=== PATIENT | female | born 2000 | race Two or more races ===

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

== ENCOUNTER 2019-02-05 08:19 | Emergency (ER) | payer OTHER ==
[~2019-02-05] VITALS: Ht 157.5 cm; Wt 85.0 kg
[~2019-02-05 08:19] MED LIST changes: +NAPR-885 PO; -NAPR500T3 PO
[2019-02-05] MEDS ORDERED: ACET1TAB55 PO (08:31)
[2019-02-05] MEDS ORDERED: ONDANSETRON 4 MG ORAL DISINTEGRATING TAB (Q0162 PER 1MG) PO ONE (09:30)
[2019-02-05] MEDS ORDERED: traMADol 50 MG TAB PO ONE (09:30)
[2019-02-05] MEDS ORDERED: TRAM50TA2 PO (09:50)
[2019-02-05] MEDS ORDERED: ONDA4TAB6 PO (09:50)
[2019-02-05 09:55] VITALS: BP 141/69
== END 2019-02-05 09:59 | disposition home or self-care (01) ==
LOC: M ED 08:19
DX: S06.0X0A Concussion without loss of consciousness, initial encounter (principal); W50.1XXA Accidental kick by another person, initial encounter; Y92.129 Unspecified place in nursing home as the place of occurrence of the external cause; Y99.0 Civilian activity done for income or pay; F41.9 Anxiety disorder, unspecified
CPT/HCPCS: 99283; Q0162

== ENCOUNTER 2020-09-20 16:00 | Emergency (ER) | payer OTHER ==
[~2020-09-20] VITALS: Ht 157.5 cm; Wt 81.8 kg
[~2020-09-20 16:00] MED LIST changes: +ACET1TAB55 PO; +ONDA4TAB6 PO; +TRAM50TA2 PO
[2020-09-20 16:01] VITALS: BP 128/74
[2020-09-20] MEDS ORDERED: TRAZ-189 (16:26)
[2020-09-20] MEDS ORDERED: SERT-138 (16:26)
[2020-09-20] MEDS ORDERED: CYCL-707 PO (18:14)
[2020-09-20] MEDS ORDERED: NAPR-837 PO (18:14)
== END 2020-09-20 18:26 | disposition home or self-care (01) ==
LOC: M ED 16:00
DX: G89.29 Other chronic pain (principal); M54.9 Dorsalgia, unspecified; X50.0XXA Overexertion from strenuous movement or load, initial encounter; Y92.238 Other place in hospital as the place of occurrence of the external cause; Y93.F9 Activity, other caregiving; Y99.0 Civilian activity done for income or pay; Z88.6 Allergy status to analgesic agent; Z79.899 Other long term (current) drug therapy

== ENCOUNTER 2020-11-07 00:46 | Emergency (ER) | payer BC, OTHER ==
[~2020-11-07] VITALS: Ht 157.5 cm; Wt 81.8 kg
[~2020-11-07 00:46] MED LIST changes: +CYCL-707 PO; +NAPR-837 PO; +SERT-138; +TRAZ-189
[2020-11-07] MEDS ORDERED: LIDOCAINE W/EPINEPHRINE 1% 20ML VIAL SC ONE (02:00)
[2020-11-07] MEDS ORDERED: BUPIVACAINE HCL 0.5% 30 ML VIAL SC ONE (02:00)
[2020-11-07] MEDS ORDERED: AUGM875T28 PO (02:25)
[2020-11-07] MEDS ORDERED: AUGMENTIN 875 MG TAB PO ONE (02:30)
[2020-11-07] MEDS ORDERED: BOOSTRIX/ADACEL VACCINE (DIPHTH/PERTUSS/ACELL/TETANUS) 0.5ML SYR IM ONE (02:30)
[2020-11-07 02:50] VITALS: BP 136/88
== END 2020-11-07 02:52 | disposition home or self-care (01) ==
LOC: M ED 00:46
DX: S01.512A Laceration without foreign body of oral cavity, initial encounter (principal); W54.0XXA Bitten by dog, initial encounter; Y92.098 Other place in other non-institutional residence as the place of occurrence of the external cause; Y93.K9 Activity, other involving animal care; Y99.8 Other external cause status; Z88.6 Allergy status to analgesic agent; Z79.899 Other long term (current) drug therapy; Z79.1 Long term (current) use of non-steroidal anti-inflammatories (NSAID)

== ENCOUNTER 2020-11-16 01:24 | Emergency (ER) | payer BC ==
[~2020-11-16] VITALS: Ht 157.5 cm; Wt 91.9 kg
[~2020-11-16 01:24] MED LIST changes: +AUGM875T28 PO
[2020-11-16 01:25] VITALS: BP 131/82
--- OUTSIDE RECORDS SUMMARY | 2020-11-16 01:30 | CCD | Continuity of Care Document ---
Author Author Dayana STEARNS [facility] Organization Unknown Address [address] [place] [address] Phone [phone] Care Team Providers Care Apprentice Painter Brush Name Role Phone Naila Ballard MD AUTM [phone] Laya Ballard AUTM [phone] Problems Description No Information Available Social History Type Date Description Comments Sex Unknown Tobacco Use Start: Unknown Never Used Smokeless Tobacco ETOH Use Denies alcohol use Tobacco Use Start: Unknown Patient has never smoked Recreational Drug Use Denies Drug Use Smoking Status Reviewed: 11/12/20 Patient has never smoked Exercise Type/Frequency Exercises regularly walk s daily, with dog Tattoo/Piercing Tattoo Tattoo/Piercing Pierced ears Tattoo/Piercing Pierced navel Tattoo/Piercing Pierced nipples Sun Exposure Moderate amount of sun exposure Sun Exposure Uses sunscreen Sun Exposure Uses greater than 30 SPF Sun Exposure Has never experienced blistering from sunburns Sun Exposure No history of sunburn Sun Exposure Does not use tanning beds Seat Belt/Car Seat Always uses seat belt Bike Helmet does not ride Smoke Alarms Yes Smoke Alarms Carbon Monoxide Detector: Yes Allergies, Adverse Reactions, Alerts Active Allergies Reaction Severity Comments Date Ibuprofen itchy throat 02/12/2020 Inactive Allergies NKDA 12/27/2005 Medications Active Medications SIG Qnty Indications Ordering Provide r Date Trazodone HCL 100mg Tablets Take One Tablet By Mouth AT Bedtime as Needed For Sleep 30tabs F43.23 Nkechi Stearns FNP 07/20/2020 Naproxen 500mg Tablets 1 by mouth twice a day as needed 60tabs Nkechi Stearns FNP 04/08/2020 Sertraline HCL 100mg Tablets 1/2 by mouth every day 45tabs F43.23 Nkechi Stearns FNP 04/08/2020 Nexplanon 68mg Implant Unknown History Medications Clindamycin Phosphate 1% Solution apply to affected area twice a day 60ml Nkechi Stearns FNP 1 11/16/2019 - 11/12/2020 Clobetasol Propionate Emollient 0.05% Cream apply to affected areas twice daily 30gm L66.2 Nkechi Corona FNP 07/20/2020 - 09/24/2020 Immunizations CPT Code Status Date Vaccine Lot # U-Flu Given 03/19/2020 Influenza,Unspecified [id number] Refused 07/20/2020 Influenza Virus Vaccine, Quadrivalent,age 3 and up,multidose vial Vital Signs Date Vital Result Comment 11/12/2020 11:44am BP Systolic 115 mmHg BP Diastolic 79 mmHg Heart Rate 81 /min Body Temperature 98.1 F Respiratory Rate 18 /min Height 62 inches 5'2" Weight 201.50 lb O2 % BldC Oximetry 98 % Peak Expiratory Flow Rate 385 Estimated Peak Flow Rate [place] Body Weight 110 lb BMI (Body Mass Index) 36.9 kg/m2 09/24/2020 12:06pm BP Systolic 120 mmHg BP Diastolic 67 mmHg Heart Rate 82 /min Body Temperature 97.3 F Respiratory Rate 17 /min Height 62 inches 5'2" Weight 200.38 lb O2 % BldC Oximetry 100 % Peak Expiratory Flow Rate 385 Estimated Peak Flow Rate [place] Body Weight 110 lb BMI (Body Mass Index) 36.6 kg/m2 Results Description No Information Available Procedures Date Code Description Status 07/20/2020 12370 Brief Emotional/Beha v Assessment W/ Scoring Doc Per Standard Inst Completed Medical Devices Description No Information Available Encounters Type Date Location Provider Dx Diagnosis Office Visit 09/24/2020 12:15p Main Office Nkechi Stearns FNP M62.8 30 Muscle spasm of back Office Visit 07/20/2020 11:15a Main Office Nkechi Stearns FNP F43.2 3 Adjustment disorder with mixed anxiety and depressed mood G47.00 Insomnia, unspecified L66.2 Folliculitis decalvans Z13.89 Encounter for screening for other disorder Assessments Date Code Description Provider 11/12/2020 N92.6 Irregular menstruation, unspecif ied Nkechi Stearns, [employer] 11/12/2020 W54.0xxD Bitten by dog, subsequent encoun ter Nkechi Stearns, [employer] INSPECT[employer] 09/24/2020 M62.830 Muscle spasm of back Zeferino Stearns, [facility] 07/20/2020 F43.23 Adjustment disorder with mixed a nxiety and depressed mood Nkechi Stearns FNP 07/20/2020 G47.00 Insomnia, unspecified Nkechi Stearns, [employer] INS[employer] 07/20/2020 L66.2 Folliculitis decalvans Nkechi Stearns, [facility] 07/20/2020 Z13.89 Encounter for screening for othe r disorder Nkechi Stearns FNP Plan of Treatment Future Appointment(s):* 11/15/2020 11:00 am - Nkechi Stearns FNP at Main Office * 01/17/2021 11:45 am - Nkechi Stearns FNP at Main Office 11/12/2020 - Nkechi Stearns FNP* N92.6 Irregular menstruation, unspecified * W54.0xxD Bitten by dog, subsequent encounter* Follow up:* Sunday for suture removal Functional Status Functional Condition Comment Date Status Glasses Active Independent with all ADL's Activ e Soft contacts Active Independent with all IADL's Acti ve Mental Status Mental Condition Comment Date Status None Active Referrals Description No Information Available
--- OUTSIDE RECORDS SUMMARY | 2020-11-16 01:30 | CCD | Continuity of Care Document ---
Author Author Dayana STEARNS [facility] Organization Unknown Address [address] [place] [address] Phone [phone] Care Team Providers Care Business Management Intern Name Role Phone Naila Ballard MD AUTM [phone] Laya Ballard AUTM [phone] Problems Description No Information Available Social History Type Date Description Comments Sex Unknown Tobacco Use Start: Unknown Never Used Smokeless Tobacco ETOH Use Denies alcohol use Tobacco Use Start: Unknown Patient has never smoked Recreational Drug Use Denies Drug Use Smoking Status Reviewed: 11/15/20 Patient has never smoked Exercise Type/Frequency Exercises [...] to affected area twice a day 60ml Daryn LATA Arboleda 1 11/16/2019 - 11/12/2020 Clobetasol Propionate Emollient 0.05% Cream apply to affected areas twice daily 30gm L66.2 Nkechi Corona FNP 07/20/2020 - 09/24/2020 Immunizations CPT Code Status Date Vaccine Lot # U-Flu Given 03/19/2020 Influenza,Unspecified [id number] Refused 07/20/2020 Influenza Virus Vaccine, Quadrivalent,age 3 and up,multidose vial Vital Signs Date Vital Result Comment 11/15/2020 10:54am BP Systolic 119 mmHg BP Diastolic 79 mmHg Heart Rate 64 /min Body Temperature 98.3 F Respiratory Rate 20 /min Height 62 inches 5'2" Weight 205.12 lb O2 % BldC Oximetry 99 % Peak Expiratory Flow Rate 385 Estimated Peak Flow Rate [place] Body Weight 110 lb BMI (Body Mass Index) 37.5 kg/m2 11/12/2020 11:44am BP Systolic 115 mmHg BP Diastolic 79 mmHg Heart Rate 81 /min Body Temperature 98.1 F Respiratory Rate 18 /min Height 62 inches 5'2" Weight 201.50 lb O2 % BldC Oximetry 98 % Peak Expiratory Flow Rate 385 Estimated Peak Flow Rate [place] Body Weight 110 lb BMI (Body Mass Index) 36.9 kg/m2 Results Description No Information Available Procedures Date Code Description Status 07/20/2020 33825 Brief Emotional/Beha v Assessment W/ Scoring Doc [...] 11/12/2020 N92.6 Irregular menstruation, unspecif ied Nkechi Stearns FNP 11/12/2020 W54.0xxD Bitten by dog, subsequent encoun ter Nkechi Stearns [facility] 09/24/2020 M62.830 Muscle spasm of back Zeferino Stearns, [facility] 07/20/2020 F43.23 Adjustment disorder with mixed a nxiety and depressed mood Nkechi Stearns [facility] 07/20/2020 G47.00 Insomnia, unspecified Nkechi Stearns [facility] 07/20/2020 L66.2 Folliculitis decalvans Nkechi Stearns, [facility] 07/20/2020 Z13.89 Encounter for screening for othe r disorder Nkechi Stearns FNP Plan of Treatment Future Appointment(s):* 01/17/2021 11:45 am - Nkechi Stearns FNP at Main Office Functional Status Functional Condition Comment Date Status Glasses Active Independent with all ADL's Activ e Soft contacts Active Independent with all IADL's Acti ve Mental Status Mental Condition Comment Date Status None Active Referrals Description No Information Available
--- OUTSIDE RECORDS SUMMARY | 2020-11-16 01:31 | CCD ---
Author Author [facility] Organization [facility] Address Unknown Phone Unavailable Care Team Providers Care Dough Mixer Operator Name Role Phone Campanaro, Mare Lisa PA Unavailable Unavailable Campanaro, Mare Lisa PA Unavailable Unavailable Campanaro, Mare Lisa PA Unavailable Unavailable Campanaro, Mare Lisa PA Unavailable Unavailable Campanaro, Mare Lisa PA Unavailable Unavailable Campanaro, Mare Lisa PA Unavailable Unavailable Campanaro, Mare Lisa PA Unavailable Unavailable Campanaro, Mare Lisa PA Unavailable Unavailable Campanaro, Mare Lisa PA Unavailable Unavailable Campanaro, Mare Lisa PA Unavailable Unavailable Campanaro, Mare Lisa PA Unavailable Unavailable Campanaro, Mare Lisa PA Unavailable Unavailable Campanaro, Mare Lisa PA Unavailable Unavailable Campanaro, Mare Lisa PA Unavailable Unavailable Campanaro, Mare Lisa PA Unavailable Unavailable Campanaro, Mare Lisa PA Unavailable Unavailable Campanaro, Mare Lisa PA Unavailable Unavailable Campanaro, Mare Lisa PA Unavailable Unavailable Pleskach, Nkechi SETTLEMENT TECHNICIAN Unavailable Unavailable Pleskach, Nkechi SETTLEMENT TECHNICIAN Unavailable Unavailable Pleskach, Nkechi SETTLEMENT TECHNICIAN Unavailable Unavailable Pleskach, Nkechi SETTLEMENT TECHNICIAN Unavailable Unavailable Pleskach, Nkechi SETTLEMENT TECHNICIAN Unavailable Unavailable Pleskach, Nkechi SETTLEMENT TECHNICIAN Unavailable Unavailable Pleskach, Nkechi SETTLEMENT TECHNICIAN Unavailable Unavailable Pleskach, Nkechi SETTLEMENT TECHNICIAN Unavailable Unavailable Pleskach, Nkechi SETTLEMENT TECHNICIAN Unavailable Unavailable Pleskach, Nkechi SETTLEMENT TECHNICIAN Unavailable Unavailable Pleskach, Nkechi SETTLEMENT TECHNICIAN Unavailable Unavailable Pleskach, Nkechi SETTLEMENT TECHNICIAN Unavailable Unavailable Pleskach, Nkechi SETTLEMENT TECHNICIAN Unavailable Unavailable Pleskach, Nkechi SETTLEMENT TECHNICIAN Unavailable Unavailable Pleskach, Nkechi SETTLEMENT TECHNICIAN Unavailable Unavailable Pleskach, Nkechi SETTLEMENT TECHNICIAN Unavailable Unavailable Pleskach, Nkechi SETTLEMENT TECHNICIAN Unavailable Unavailable Pleskach, Nkechi SETTLEMENT TECHNICIAN Unavailable Unavailable Pleskach, Nkechi SETTLEMENT TECHNICIAN Unavailable Unavailable Pleskach, Nkechi SETTLEMENT TECHNICIAN Unavailable Unavailable Pleskach, Nkechi SETTLEMENT TECHNICIAN Unavailable Unavailable Pleskach, Nkechi SETTLEMENT TECHNICIAN Unavailable Unavailable Pleskach, Nkechi SETTLEMENT TECHNICIAN Unavailable Unavailable Pleskach, Nkechi SETTLEMENT TECHNICIAN Unavailable Unavailable Pleskach, Nkechi SETTLEMENT TECHNICIAN Unavailable Unavailable Pleskach, Nkechi SETTLEMENT TECHNICIAN Unavailable Unavailable Pleskach, Nkechi SETTLEMENT TECHNICIAN Unavailable Unavailable Pleskach, Nkechi SETTLEMENT TECHNICIAN Unavailable Unavailable Osorio, Jonna CONVEYOR INSTALLER Unavailable Unavailable Osorio, Jonna CONVEYOR INSTALLER Unavailable Unavailable Osorio, Jonna CONVEYOR INSTALLER Unavailable Unavailable Osorio, Jonna CONVEYOR INSTALLER Unavailable Unavailable Osorio, Jonna CONVEYOR INSTALLER Unavailable Unavailable Osorio, Jonna CONVEYOR INSTALLER Unavailable Unavailable Osorio, Jonna CONVEYOR INSTALLER Unavailable Unavailable Osorio, Jonna CONVEYOR INSTALLER Unavailable Unavailable Osorio, Jonna CONVEYOR INSTALLER Unavailable Unavailable Osorio, Jonna CONVEYOR INSTALLER Unavailable Unavailable Osorio, Jonna CONVEYOR INSTALLER Unavailable Unavailable Re-disclosure Warning The records that you are about to access may contain information from federally-assisted alcohol or drug abuse programs. If such information is present, then the following federally mandated warning applies: This information has been disclosed to you from records protected by federal confidentiality rules (42 CFR part 2). The federal rules prohibit you from making any further disclosure of this information unless further disclosure is expressly permitted by the written consent of the person to whom it pertains or as otherwise permitted by 42 CFR part 2. A general authorization for the release of medical or other information is NOT sufficient for this purpose. The Federal rules restrict any use of the information to criminally investigate or prosecute any alcohol or drug abuse patient.The records that you are about to access may contain highly sensitive health information, the redisclosure of which is protected by Article 27-F of the [facility] Public Health law. If you continue you may have access to information: Regarding HIV / AIDS; Provided by facilities licensed or operated by the [facility] Office of Mental Health; or Provided by the [facility] Office for People With Developmental Disabilities. If such information is present, then the following [facility] mandated warning applies: This information has been disclosed to you from confidential records which are protected by state law. State law prohibits you from making any further disclosure of this information without the specific written consent of the person to whom it pertains, or as otherwise permitted by law. Any unauthorized further disclosure in violation of state law may result in a fine or halfway sentence or both. A general authorization for the release of medical or other information is NOT sufficient authorization for further disc losure. Allergies and Adverse Reactions Type Description Substance Reaction Status Data Source(s ) Drug Allergy Drug Allergy NKDA [facility] ([facility] Family History Family Member Name Family Member Gender Family Member Status Date o f Status Description Data Source(s) Unknown Unknown Problem [facility] ([facility], [facility]) Encounters Encounter Providers Location Date Indications Data Source(s ) Outpatient Attender: Nkechi Stearns [facility] Main Office 09/24/2020 1 1:15:00 AM EST [facility] ([facility] Outpatient Attender: Lisa brown 08/17/2020 05:40:00 PM EDT [facility] ([facility], [facility]) Outpatient Attender: Jonna piña 08/06/2020 03:05:00 PM EDT [facility] ([facility] Outpatient Attender: Nkechi Stearns [facility] Main Office 07/20/2020 1 1:15:00 AM EDT [facility] ([facility] Outpatient Attender: Nkechi Stearns [facility] Main Office 04/08/2020 0 2:00:00 PM EDT [facility] ([facility] Outpatient Attender: Jonna Osorio NP Moni piña 03/19/2020 01:10:00 PM EDT [facility] ([facility]) Outpatient Attender: Nkechi Stearns [facility] Main Office 03/08/2020 0 3:30:00 PM EDT [facility] ([facility] Outpatient Attender: Nkechi Stearns [facility] Main Office 02/12/2020 0 3:15:00 PM EDT [facility] ([facility] Immunizations Vaccine Date Status Description Data Source(s) New in 2012. IIV4 07/20/2020 11:20:00 AM EDT completed [facility] ([facility] This CVX code allows reporting of a vacc ination when formulation is unknown (for example, when recording a Influenza vaccination when noted on a vaccination card) 03/19/2020 09:02:00 AM EDT completed [facility] T ([facility] Medications Medication Brand Name Start Date Product Form Dose Route Admi nistrative Instructions Pharmacy Instructions Status Indications Reaction Description Data Source(s) 875-125 mg 11/07/2020 12:00:00 AM EST tablet 20 TAKE ONE TABLET BY MOUTH TWICE A DAY TAKE ONE TABLET BY MOUTH TWICE A DAY SOLD: 11/07/2020 [facility] 500 mg 10/06/2020 12:00:00 AM EST tablet 60 TAKE ONE TABLET BY MOUTH TWICE A DAY WITH FOOD NEEDED TAKE ONE TABLET BY MOUTH TWICE A DAY WIT H FOOD NEEDED SOLD: 10/07/2020 [facility] 500 mg 09/20/2020 12:00:00 AM EST tablet 30 TAKE ONE TABLET BY MOUTH TWICE A DAY WITH FOOD TAKE ONE TABLET BY MOUTH TWICE A DAY WITH FOOD SOLD: 09/20/2020 [facility] Cyclobenzaprine hydrochloride 10 MG Oral Tablet CYCLOBENZAPR INE HCL 09/20/2020 12:00:00 AM EST tablet 15 TAKE ONE TABLET BY MOUTH THREE TIMES A DAY NEEDED FOR MUSCLE SPASMS TAKE ONE TABLET BY MOUTH THREE TIMES A D AY NEEDED FOR MUSCLE SPASMS SOLD: 09/20/2020 [facility] 1 % 09/17/2020 12:00:00 AM EST solution 60 APPLY TO AFFECTED AREA(S) TWO TIMES A DAY APPLY TO AFFECTED AREA(S) TWO TIMES A DAY SOLD: 09/23/2020 [facility] Clindamycin 10 MG/ML Topical Solution Clindamycin Phosphate 09/16/2020 12:00:00 AM EST completed [facility] ([facility] 875-125 mg 08/17/2020 12:00:00 AM EDT tablet 14 TAKE ONE TABLET BY MOUTH TWICE A DAY WITH FOOD FOR 7 DAYS TAKE ONE TABLET BY MOUTH TWICE A DAY WIT H FOOD FOR 7 DAYS SOLD: 08/17/2020 [facility] benzonatate 100 MG Oral Capsule [Tessalmanpreet Burks] Tessalon P erles 08/17/2020 12:00:00 AM EDT active M [facility]ENT ([facility]) benzonatate 100 MG Oral Capsule BENZONATATE 08/17/2020 12:00:00 AM EDT capsule 20 TAKE TWO CAPSULES BY MOUTH TWICE A DAY F OR 5 DAYS TAKE TWO CAPSULES BY MOUTH TWICE A DAY FOR 5 DAYS SOLD: 08/17/2020 [facility] Amoxicillin 875 MG / Clavulanate 125 MG Oral Tablet Am oxicillin/Clavulanate Potassium 08/17/2020 12:00:00 AM EDT ORAL active [facility] ([facility]) benzonatate 100 MG Oral Capsule Benzonatate 08/06/2020 12:00:00 AM EDT ORAL completed [facility] ([facility]) benzonatate 100 MG Oral Capsule BENZONATATE 08/06/2020 12:00:00 AM EDT capsule 14 TAKE ONE CAPSULE BY MOUTH THREE TIMES A DAY NEEDED FOR COUGH TAKE ONE CAPSULE BY MOUTH THREE TIMES A DAY NEEDED FOR COUGH SOLD: 08/06/2020 [facility] Loryna 28 Day Pack 3-0.02 mg ETHINYL ESTRADIOL/DROSPIRENONE 07/29/2020 12:00:00 AM EDT tablet 28 TAKE ONE TABLET BY MOUTH SAM DAY TAKE ONE TABLET BY MOUTH EVERY DAY SOLD: 08/06/2020 [facility] Trazodone Hydrochloride 100 MG Oral Tablet TRAZODONE HCL 07/20/2020 12:00:00 AM EDT tablet 30 TAKE ONE TABLET BY MOUTH AT BEDTIME NEEDED TAKE ONE TABLET BY MOUTH AT BEDTIME NEEDED SOLD: 09/16/2020 [facility] 100 mg 07/20/2020 12:00:00 AM EDT tablet 45 TAKE 1 & 1/2 TABLETS BY MOUTH ONCE DAILY TAKE 1 & 1/2 TABLETS BY MOUTH ONCE DAILY SOLD: 07/20/2020 [facility] 0.05 % 07/20/2020 12:00:00 AM EDT cream 30 APPLY TO AFFECTED AREAS TWO TIMES A DAY APPLY TO AFFECTED AREAS TWO TIMES A DAY SOLD: 07/20/2020 [facility] 100 mg 07/20/2020 12:00:00 AM EDT tablet 45 TAKE 1 & 1/2 TABLETS BY MOUTH ONCE DAILY TAKE 1 & 1/2 TABLETS BY MOUTH ONCE DAILY SOLD: 08/23/2020 [facility] Trazodone Hydrochloride 100 MG Oral Tablet TRAZODONE HCL 07/20/2020 12:00:00 AM EDT tablet 30 TAKE ONE TABLET BY MOUTH AT BEDTIME NEEDED TAKE ONE TABLET BY MOUTH AT BEDTIME NEEDED SOLD: 11/07/2020 [facility] 100 mg 07/20/2020 12:00:00 AM EDT tablet 30 TAKE ONE TABLET BY MOUTH AT BEDTIME NEEDED TAKE ONE TABLET BY MOUTH AT BEDTIME NEEDED SOLD: [facility] Trazodone Hydrochloride 100 MG Oral Tablet Trazodone HCL 07/20/2020 12:00:00 AM EDT active [facility] ([facility] Clobetasol Propionate Emollient Clobetasol Propionate Emolli ent 07/20/2020 12:00:00 AM EDT completed [facility] ([facility] 50 mg 05/17/2020 12:00:00 AM EDT tablet 30 TAKE ONE TABLET BY MOUTH AT BEDTIME NEEDED FOR SLEEP TAKE ONE TABLET BY MOUTH AT BEDTIME N EEDED FOR SLEEP SOLD: 05/18/2020 [facility] 50 mg 05/17/2020 12:00:00 AM EDT tablet 30 TAKE ONE TABLET BY MOUTH AT BEDTIME NEEDED FOR SLEEP TAKE ONE TABLET BY MOUTH AT BEDTIME N EEDED FOR SLEEP SOLD: 06/20/2020 [facility] 500 mg 04/09/2020 12:00:00 AM EDT tablet 60 TAKE ONE TABLET BY MOUTH TWICE A DAY NEEDED TAKE ONE TABLET BY MOUTH TWICE A DAY NEEDED SOLD: 04/14/2020 [facility] Sertraline 100 MG Oral Tablet Sertraline HCL 04/08/2020 12:00:00 AM E DT ORAL active [facility] ([facility] Naproxen 500 MG Oral Tablet Naproxen 04/08/2020 12:00:00 AM EDT ORAL active [facility] ([facility] 100 mg 04/08/2020 12:00:00 AM EDT tablet 30 TAKE ONE TABLET BY MOUTH EVERY DAY TAKE ONE TABLET BY MOUTH EVERY DAY SOLD: 06/20/2020 [facility] 100 mg 04/08/2020 12:00:00 AM EDT tablet 30 TAKE ONE TABLET BY MOUTH EVERY DAY TAKE ONE TABLET BY MOUTH EVERY DAY SOLD: 05/18/2020 [facility] 100 mg 04/08/2020 12:00:00 AM EDT tablet 30 TAKE ONE TABLET BY MOUTH EVERY DAY TAKE ONE TABLET BY MOUTH EVERY DAY SOLD: 04/14/2020 [facility] 100 mg 04/08/2020 12:00:00 AM EDT tablet 30 TAKE ONE TABLET BY MOUTH EVERY DAY TAKE ONE TABLET BY MOUTH EVERY DAY SOLD: 10/28/2020 [facility] 60 mcg (15 mcg x 4)/0.5 mL 03/19/2020 12:00:00 AM EDT syring e 0 INJECT UNDER THE SKIN INJECT UNDER THE SKIN SOLD: 03/19/2020 [facility] 50 mg 03/08/2020 12:00:00 AM EDT tablet 30 TAKE ONE TABLET BY MOUTH AT BEDTIME NEEDED FOR SLEEP TAKE ONE TABLET BY MOUTH AT BEDTIME N EEDED FOR SLEEP SOLD: 03/09/2020 [facility] Trazodone Hydrochloride 50 MG Oral Tablet Trazodone HCL 03/08/2020 12:00:00 AM EDT completed [facility] ([facility] 50 mg 03/08/2020 12:00:00 AM EDT tablet 30 TAKE ONE TABLET BY MOUTH AT BEDTIME NEEDED FOR SLEEP TAKE ONE TABLET BY MOUTH AT BEDTIME N EEDED FOR SLEEP SOLD: 04/22/2020 [facility] 50 mg 02/13/2020 12:00:00 AM EDT tablet 30 TAKE ONE TABLET BY MOUTH EVERY DAY TAKE ONE TABLET BY MOUTH EVERY DAY SOLD: 03/15/2020 [facility] 25 mg 02/13/2020 12:00:00 AM EDT tablet 90 TAKE ONE TABLET BY MOUTH AT BEDTIME NEEDED FOR ANXIETY TAKE ONE TABLET BY MOUTH AT BEDTIME N EEDED FOR ANXIETY SOLD: 02/13/2020 [facility] 50 mg 02/13/2020 12:00:00 AM EDT tablet 30 TAKE ONE TABLET BY MOUTH EVERY DAY TAKE ONE TABLET BY MOUTH EVERY DAY SOLD: 02/13/2020 [facility] Hydroxyzine Hydrochloride 25 MG Oral Tablet Hydroxyzine HCL 02/12/2020 12:00:00 AM EDT ORAL completed [facility] ([facility] Sertraline 50 MG Oral Tablet Sertraline HCL 02/12/2020 12:00:00 AM EDT ORAL completed [facility] ([facility] Insurance Providers Payer name Policy type / Coverage type Policy ID Covered libertarian ID Covered libertarian's relationship to caban Policy Caban Plan Information 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 [id number] [facility] [id number] [place] [id number] [place] [id number] SP [id number] [facility] [id number] SP [id number] [facility] [id number] SP [id number] [facility] [id number] SP [id number] [facility] [id number] SP [id number] [facility] [id number] SP [id number] [facility] [id number] SP [id number] [facility] Commercial [id number] Self [id number] [facility] Commercial [id number] Self [id number] [facility] Commercial [id number] Self [id number] MVP Commercial [id number] Self [id number] [employer] [place] PPO 302/[id number] EXCELL[employer] BCBS B [id number] C VYB BS Child [facility] Plus Health Maintenance Organization (HMO) [id number] Self [id number] [employer]LL[employer] BCBS B [id number] O [id number] [id number] [employer] [place] PPO 302/[id number] EXCELLUS I [id number] BrSi [id number] Excellus Blue Cross Commercial Self Excellus BCBS CHP P [id number] O [id number] [employer]BS [place] PPO 302/307 [id number] Excell[employer] BCBS CHP P S [id number] Excell[employer] BCYO P [id number] O VYI [id number] Excell[employer] BCYO P [id number] O VYI [id number] O BLUE [id number] SP [id number] Surgeries/Procedures Procedure Description Date Indications Data Source(s) Brief Emotional/Behav Assessment W/ Scoring Doc Per Standard Inst 07/20/2020 12:00:00 AM EDT [facility] Results ID Date Data Source [id number] 09/29/2020 10:02:00 AM EST [facility] Name Value Range Interpretation Code Description Data Mayda rce(s) Supporting Document(s) SARS-CoV-2 [facility] This lab was ordered by [employer] [employer] and reported by [employer]. ID Date Data Source [id number] 09/15/2020 12:00:00 AM EST [facility] Name Value Range Interpretation Code Description Data Mayda rce(s) Supporting Document(s) SARS [facility] This lab was ordered by [employer]- Employee and reported by [employer]. ID Date Data Source [id number] 09/08/2020 12:00:00 AM EST [facility] Name Value Range Interpretation Code Description Data Mayda rce(s) Supporting Document(s) SARS [facility] This lab was ordered by [facility] and reported by [employer]. ID Date Data Source [id number] 09/01/2020 12:00:00 AM EDT [facility] Name Value Range Interpretation Code Description Data Mayda rce(s) Supporting Document(s) SARS [facility] This lab was ordered by [facility]- Employee and reported by [employer]. ID Date Data Source [id number] 08/25/2020 10:38:00 PM EDT [facility] Name Value Range Interpretation Code Description Data Mayda rce(s) Supporting Document(s) SARS-CoV-2 [facility] This lab was ordered by [employer] and reported by [employer]. ID Date Data Source [id number] 08/18/2020 02:21:00 AM EDT [facility] Name Value Range Interpretation Code Description Data Mayda rce(s) Supporting Document(s) SARS-CoV-2 [facility] This lab was ordered by [employer] and reported by [employer]. ID Date Data Source [id number] 08/04/2020 10:09:00 PM EDT [facility] Name Value Range Interpretation Code Description Data Mayda rce(s) Supporting Document(s) SARS-CoV-2 [facility] This lab was ordered by [employer] and reported by [employer]. ID Date Data Source [id number] 07/28/2020 09:28:00 AM EDT [facility] Name Value Range Interpretation Code Description Data Mayda rce(s) Supporting Document(s) SARS-CoV-2 [facility] This lab was ordered by [employer] and reported by [employer]. ID Date Data Source [id number] 07/21/2020 10:44:00 AM EDT [facility] Name Value Range Interpretation Code Description Data Mayda rce(s) Supporting Document(s) SARS-CoV-2 [facility] This lab was ordered by [employer] and reported by [employer]. ID Date Data Source [id number] 07/14/2020 01:32:00 PM EDT [facility] Name Value Range Interpretation Code Description Data Mayda rce(s) Supporting Document(s) SARS-CoV-2 [facility] This lab was ordered by [employer] and reported by [employer]. ID Date Data Source [id number] 07/07/2020 01:27:00 PM EDT [facility] Name Value Range Interpretation Code Description Data Mayda rce(s) Supporting Document(s) SARS-CoV-2 [facility] This lab was ordered by [employer] ics and reported by [employer]. ID Date Data Source [id number] 06/30/2020 12:00:00 AM EDT [facility] Name Value Range Interpretation Code Description Data Mayda rce(s) Supporting Document(s) 2018-nCoV RNA XXX CAM+probe-Imp [facility] This lab was ordered by [employer] and repo rted by [employer]. ID Date Data Source [id number] 06/17/2020 12:00:00 AM EDT [facility] Name Value Range Interpretation Code Description Data Mayda rce(s) Supporting Document(s) 2018-nCoV RNA XXX CAM+probe-Imp [facility] This lab was ordered by [employer] and repo rted by [employer]. ID Date Data Source [id number] 06/02/2020 12:00:00 AM EDT [facility] Name Value Range Interpretation Code Description Data Mayda rce(s) Supporting Document(s) 2019-nCoV RNA XXX CAM+probe-Imp [facility] This lab was ordered by [employer] and repo rted by [employer]. ID Date Data Source [id number] 05/26/2020 12:00:00 AM EDT [facility] Name Value Range Interpretation Code Description Data Mayda rce(s) Supporting Document(s) 2018-nCoV RNA XXX CAM+probe-Imp [facility] This lab was ordered by [employer] and repo rted by [employer]. ID Date Data Source [id number] 05/19/2020 12:00:00 AM EDT [facility] Name Value Range Interpretation Code Description Data Mayda rce(s) Supporting Document(s) 2019-nCoV RNA XXX CAM+probe-Imp [facility] This lab was ordered by [employer] and repo rted by [employer]. ID Date Data Source [id number] 04/30/2020 12:00:00 AM EDT [facility] Name Value Range Interpretation Code Description Data Mayda rce(s) Supporting Document(s) 2018-nCoV RNA XXX CAM+probe-Imp [facility] This lab was ordered by [employer] and repo rted by [employer]. ID Date Data Source [id number] 04/21/2020 12:00:00 AM EDT [facility] Name Value Range Interpretation Code Description Data Mayda rce(s) Supporting Document(s) 2019-nCoV RNA XXX CAM+probe-Imp [facility] This lab was ordered by [employer] and repo rted by [employer]. ID Date Data Source [id number] 04/16/2020 12:00:00 AM EDT [facility] Name Value Range Interpretation Code Description Data Mayda rce(s) Supporting Document(s) 2018-nCoV RNA XXX CAM+probe-Imp [facility] This lab was ordered by [employer] and repo rted by [employer]. ID Date Data Source [id number] 04/12/2020 12:00:00 AM EDT [facility] Name Value Range Interpretation Code Description Data Mayda rce(s) Supporting Document(s) 2018-nCoV RNA XXX CAM+probe-Imp [facility] This lab was ordered by [employer] and repo rted by [employer]. ID Date Data Source [id number] 04/06/2020 12:00:00 AM EDT [facility] Name Value Range Interpretation Code Description Data Mayda rce(s) Supporting Document(s) 2019-nCoV RNA XXX CAM+probe-Imp [facility] This lab was ordered by [employer] and repo rted by [employer]. ID Date Data Source [id number] 03/26/2020 12:00:00 AM EDT [facility] Name Value Range Interpretation Code Description Data Mayda rce(s) Supporting Document(s) 2019-nCoV RNA XXX CAM+probe-Imp [facility] This lab was ordered by [employer] and repo rted by [employer]. Procedure Social History Code Duration Value Status Description Data Source(s ) Smoking 11/15/2020 12:00:00 AM EST Patient has never smoked co mpleted Patient has never smoked [facility] Vital Signs ID Date Data Source UNK Name Value Range Interpretation Code Description Data Source(s) Body mass index (BMI) [Ratio] 37.5 kg/m2 37.5 k g/m2 [facility] ([facility] [place] body weight 110 [lb_av] 110 [lb_av] [facility] T ([facility] Oxygen saturation in Arterial blood by Pulse oximetry 99 % 99 % [facility] ([facility] Body weight 205.12 [lb_av] 205.12 [lb_av] [facility] ([facility] Body height 62 [in_i] 62 [in_i] [facility] 5'2" Respiratory rate 20 /min 20 /min [facility] ( [facility] Body temperature 98.3 [degF] 98.3 [degF] [facility] ([facility] Heart rate 64 /min 64 /min [facility] ([facility] Diastolic blood pressure 79 mm[Hg] 79 mm[Hg] [facility] Systolic blood pressure 119 mm[Hg] 119 mm[Hg] [facility] ([facility] Body mass index (BMI) [Ratio] 36.9 kg/m2 36.9 k g/m2 [facility] ([facility] [place] body weight 110 [lb_av] 110 [lb_av] [facility] T ([facility] Oxygen saturation in Arterial blood by Pulse oximetry 98 % 98 % [facility] ([facility] Body weight 201.50 [lb_av] 201.50 [lb_av] [facility] T ([facility] Body height 62 [in_i] 62 [in_i] [facility] 5'2" Respiratory rate 18 /min 18 /min [facility] ( [facility] Body temperature 98.1 [degF] 98.1 [degF] [facility] ([facility] Heart rate 81 /min 81 /min [facility] ([facility] Diastolic blood pressure 79 mm[Hg] 79 mm[Hg] [facility] Systolic blood pressure 115 mm[Hg] 115 mm[Hg] M [facility] ([facility] Body mass index (BMI) [Ratio] 36.6 kg/m2 36.6 k g/m2 [facility] ([facility] [place] body weight 110 [lb_av] 110 [lb_av] [facility] T ([facility] Oxygen saturation in Arterial blood by Pulse oximetry 100 % 100 % [facility] Body weight 200.38 [lb_av] 200.38 [lb_av] [facility] ([facility] Body height 62 [in_i] 62 [in_i] [facility] 5'2" Respiratory rate 17 /min 17 /min [facility] ( [facility] Body temperature 97.3 [degF] 97.3 [degF] [facility] Heart rate 82 /min 82 /min [facility] ([facility] Diastolic blood pressure 67 mm[Hg] 67 mm[Hg] [facility] ([facility] Systolic blood pressure 120 mm[Hg] 120 mm[Hg] M [facility] ([facility] Body mass index (BMI) [Ratio] 32.9 kg/m2 32.9 k g/m2 [facility] ([facility], [facility]) Body height 62 [in_i] 62 [in_i] [facility] SYSTEM) 5'2" Body weight 180.00 [lb_av] 180.00 [lb_av] MEDEN T ([facility], [facility]) Body temperature 98.2 [degF] 98.2 [degF] [facility] ([facility], [facility]) Oxygen saturation in Arterial blood by Pulse oximetry 99 % 99 % [facility] ([facility], [facility]) Respiratory rate 14 /min 14 /min MEDENT ( [facility], [facility]) Heart rate 77 /min 77 /min [facility] ([facility], [facility]) Diastolic blood pressure 85 mm[Hg] 85 mm[Hg] [facility] ([facility], [facility]) Systolic blood pressure 130 mm[Hg] 130 mm[Hg] [facility] ([facility], [facility]) Body mass index (BMI) [Ratio] 33.8 kg/m2 33.8 k g/m2 [facility] ([facility], [facility]) Body height 62 [in_i] 62 [in_i] [facility] ([facility], [facility]) 5'2" Body weight 185.00 [lb_av] 185.00 [lb_av] MEDEN T ([facility], [facility]) Body temperature 98.6 [degF] 98.6 [degF] [facility] ([facility], [facility]) Oxygen saturation in Arterial blood by Pulse oximetry 97 % 97 % [facility] ([facility], [facility]) Respiratory rate 12 /min 12 /min [facility] ( [facility], [facility]) Heart rate 89 /min 89 /min [facility] ([facility], [facility]) Diastolic blood pressure 74 mm[Hg] 74 mm[Hg] [facility] ([facility], [facility]) Systolic blood pressure 109 mm[Hg] 109 mm[Hg] M [facility] ([facility], [facility]) Oxygen saturation in Arterial blood by Pulse oximetry 98 % 98 % [facility] ([facility] Body weight 191.25 [lb_av] 191.25 [lb_av] MED[facility] T ([facility] Respiratory rate 16 /min 16 /min [facility] ( [facility] Body temperature 97.8 [degF] 97.8 [degF] [facility] ([facility] Heart rate 63 /min 63 /min [facility] ([facility] Diastolic blood pressure 75 mm[Hg] 75 mm[Hg] [facility] ([facility] Systolic blood pressure 118 mm[Hg] 118 mm[Hg] M [facility] ([facility] Oxygen saturation in Arterial blood by Pulse oximetry 98 % 98 % [facility] ([facility] Body weight 195.25 [lb_av] 195.25 [lb_av] [facility] T ([facility] Respiratory rate 20 /min 20 /min [facility] ( [facility] Body temperature 98.4 [degF] 98.4 [degF] [facility] ([facility] Heart rate 67 /min 67 /min [facility] ([facility] Diastolic blood pressure 65 mm[Hg] 65 mm[Hg] [facility] ([facility] Systolic blood pressure 125 mm[Hg] 125 mm[Hg] M EDENT ([facility] Body mass index (BMI) [Ratio] 34.6 kg/m2 34.6 k g/m2 [facility] ([facility]) Body height 62 [in_i] 62 [in_i] [facility] ([facility]) 5'2" Body weight 189.00 [lb_av] 189.00 [lb_av] MEDEN T ([facility], [facility]) Body temperature 98.3 [degF] 98.3 [degF] [facility] ([facility], [facility]) Oxygen saturation in Arterial blood by Pulse oximetry 99 % 99 % [facility] ([facility], [facility]) Respiratory rate 17 /min 17 /min [facility] ( [facility], [facility]) Heart rate 75 /min 75 /min [facility] ([facility], [facility]) Diastolic blood pressure 78 mm[Hg] 78 mm[Hg] [facility] ([facility], [facility]) Systolic blood pressure 122 mm[Hg] 122 mm[Hg] [facility] ([facility], [facility])
--- OUTSIDE RECORDS SUMMARY | 2020-11-16 02:20 | CCD ---
Author Author [facility] Organization [facility] Address Unknown Phone Unavailable Care Team Providers Care Supervisor Coke Handling Name Role Phone Campanaro, Mare Lisa PA [...] Mare Lisa PA Unavailable Unavailable Pleskach, Nkechi TAXI DRIVER Unavailable Unavailable Pleskach, Nkechi TAXI DRIVER Unavailable Unavailable Pleskach, Nkechi TAXI DRIVER Unavailable Unavailable Pleskach, Nkechi TAXI DRIVER Unavailable Unavailable Pleskach, Nkechi TAXI DRIVER Unavailable Unavailable Pleskach, Nkechi TAXI DRIVER Unavailable Unavailable Pleskach, Nkechi TAXI DRIVER Unavailable Unavailable Pleskach, Nkechi TAXI DRIVER Unavailable Unavailable Pleskach, Nkechi TAXI DRIVER Unavailable Unavailable Pleskach, Nkechi TAXI DRIVER Unavailable Unavailable Pleskach, Nkechi TAXI DRIVER Unavailable Unavailable Pleskach, Nkechi TAXI DRIVER Unavailable Unavailable Pleskach, Nkechi TAXI DRIVER Unavailable Unavailable Pleskach, Nkechi TAXI DRIVER Unavailable Unavailable Pleskach, Nkechi TAXI DRIVER Unavailable Unavailable Pleskach, Nkechi TAXI DRIVER Unavailable Unavailable Pleskach, Nkechi TAXI DRIVER Unavailable Unavailable Pleskach, Nkechi TAXI DRIVER Unavailable Unavailable Pleskach, Nkechi TAXI DRIVER Unavailable Unavailable Pleskach, Nkechi TAXI DRIVER Unavailable Unavailable Pleskach, Nkechi TAXI DRIVER Unavailable Unavailable Pleskach, Nkechi TAXI DRIVER Unavailable Unavailable Pleskach, Nkechi TAXI DRIVER Unavailable Unavailable Pleskach, Nkechi TAXI DRIVER Unavailable Unavailable Pleskach, Nkechi TAXI DRIVER Unavailable Unavailable Pleskach, Nkechi TAXI DRIVER Unavailable Unavailable Pleskach, Nkechi TAXI DRIVER Unavailable Unavailable Pleskach, Nkechi TAXI DRIVER Unavailable Unavailable Osorio, Jonna REVENUE FIELD AGENT Unavailable Unavailable Osorio, Jonna REVENUE FIELD AGENT Unavailable Unavailable Osorio, Jonna REVENUE FIELD AGENT Unavailable Unavailable Osorio, Jonna REVENUE FIELD AGENT Unavailable Unavailable Osorio, Jonna REVENUE FIELD AGENT Unavailable Unavailable Osorio, Jonna REVENUE FIELD AGENT Unavailable Unavailable Osorio, Jonna REVENUE FIELD AGENT Unavailable Unavailable Osorio, Jonna REVENUE FIELD AGENT Unavailable Unavailable Osorio, Jonna REVENUE FIELD AGENT Unavailable Unavailable Osorio, Jonna REVENUE FIELD AGENT Unavailable Unavailable Osorio, Jonna REVENUE FIELD AGENT Unavailable Unavailable Re-disclosure Warning The records that [...] is protected by Article 27-F of the [facility] Public Health law. If you continue you may have access to information: Regarding HIV / AIDS; Provided by facilities licensed or operated by the [facility] Office of Mental Health; or Provided by the [facility] Office for People With Developmental Disabilities. If such information is present, then the following [facility] mandated warning applies: This information has been [...] law may result in a fine or chcf sentence or both. A general authorization for [...] Unknown Problem [facility] ([facility], [facility]) Encounters Encounter Providers Location Date Indications Data Source(s ) Outpatient Attender: Nkechi Stearns [facility] Main Office 09/24/2020 1 1:15:00 AM EST [facility] ([facility] Outpatient Attender: Lisa brown 08/17/2020 05:40:00 PM EDT [facility] ([facility], [facility]) Outpatient Attender: Jonna piña 08/06/2020 03:05:00 PM EDT [facility] ([facility] Outpatient Attender: Nkechi Stearns [facility] Main Office 07/20/2020 1 1:15:00 AM EDT [facility] ([facility] Outpatient Attender: Nkechi Stearns [facility] Main Office 04/08/2020 0 2:00:00 PM EDT [facility] ([facility] Outpatient Attender: Jonna Osorio NP Moni piña 03/19/2020 01:10:00 PM EDT [facility] ([facility]) Outpatient Attender: Nkechi Stearns [facility] Main Office 03/08/2020 0 3:30:00 PM EDT MED[facility] ([facility] Outpatient Attender: Nkechi Stearns [facility] Main Office 02/12/2020 0 3:15:00 PM [...] 08/17/2020 12:00:00 AM EDT active M EDENT ([facility]) benzonatate 100 MG Oral Capsule BENZONATATE 08/17/2020 12:00:00 AM EDT capsule 20 TAKE TWO CAPSULES BY MOUTH TWICE A DAY F OR 5 DAYS TAKE TWO CAPSULES BY MOUTH TWICE A DAY FOR 5 DAYS SOLD: 08/17/2020 [facility] Amoxicillin 875 MG / Clavulanate 125 MG Oral Tablet Am oxicillin/Clavulanate Potassium 08/17/2020 12:00:00 AM EDT ORAL active MEDENT ([facility]) benzonatate 100 MG Oral Capsule Benzonatate 08/06/2020 12:00:00 AM EDT ORAL completed [facility] ([facility]) benzonatate 100 MG Oral Capsule BENZONATATE 08/06/2020 [...] MOUTH TWICE A DAY NEEDED SOLD: 04/14/2020 [facility] Sertraline 100 MG Oral Tablet Sertraline [...] type / Coverage type Policy ID Covered alliance party ID Covered alliance party's relationship to caban Policy Caban Plan Information 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 [id number] [place] [facility] [id number] SP [id number] [place] [id number] SP [id number] [facility] CARE [id number] SP [id number] [facility]URSING [id number] SP [id number] [facility] N[facility] [id number] SP [id number] [facility] [id number] SP [id number] [facility] [id number] SP [id number] [facility] HE[facility] CARE [id number] SP [id number] [facility] Commercial [id number] Self [id number] [facility] Commercial [id number] Self [id number] [facility] Commercial [id number] Self [id number] [employer] Commercial [id number] Self [id number] [employer] [place] PPO 302/307 [id number] [employer]CELL[employer] BCBS B [id number] C VYB BS Child Health Plus Health Maintenance Organization (HMO) [id number] Self [id number] [employer] BCBS B [id number] O VYB [id number] [employer] [place] PPO 302/307 [id number] EXCELLUS I [id number] [id number] Excell[employer] Blue [employer] Commercial Self Excellus BCBS CHP P [id number] O [id number] [employer] [place] PPO 302/307 [id number] [employer] BCBS CHP P S [id number] [employer] BCYO P [id number] O VYI [id number] [employer] BCYO P [id number] O VYI [id number] O BLUE [id number] SP [id number] Surgeries/Procedures Procedure Description Date Indications Data Source(s) Brief Emotional/Behav Assessment W/ Scoring Doc Per Standard Inst 07/20/2020 12:00:00 AM EDT [facility] ([facility] Results ID Date Data Source [id number] 09/29/2020 10:02:00 AM EST [facility] Name Value Range Interpretation Code Description Data Mayda rce(s) Supporting Document(s) SARS-CoV-2 [facility] This lab was ordered by [facility] and reported by [facility]. ID Date Data Source [id number] 09/15/2020 12:00:00 AM EST [facility] Name Value Range Interpretation Code Description Data Mayda rce(s) Supporting Document(s) SARS [facility] This lab was ordered by [facility]- [facility] and reported by [employer]. ID Date Data Source [id number] 09/08/2020 12:00:00 AM EST [facility] Name Value Range Interpretation Code Description Data Mayda rce(s) Supporting Document(s) SARS [facility] This lab was ordered by [facility] and reported by [employer]. ID Date Data Source [id number] 09/01/2020 12:00:00 AM EDT [facility] Name Value Range Interpretation Code Description Data Mayda rce(s) Supporting Document(s) SARS [facility] This lab was ordered by [facility] Employee and reported by [employer]. ID Date Data Source [id number] 08/25/2020 10:38:00 PM EDT [facility] Name Value Range Interpretation Code Description Data Mayda rce(s) Supporting Document(s) SARS-CoV-2 [facility] This lab was ordered by [facility] and reported by [employer]. ID Date Data Source [id number] 08/18/2020 02:21:00 AM EDT [facility] Name Value Range Interpretation Code Description Data Mayda rce(s) Supporting Document(s) SARS-CoV-2 [facility] This lab was ordered by [facility] and reported by [employer]. ID Date Data Source [id number] 08/04/2020 10:09:00 PM EDT [facility] Name Value Range Interpretation Code Description Data Mayda rce(s) Supporting Document(s) SARS-CoV-2 [facility] This lab was ordered by [facility] and reported by [employer]. ID Date Data Source [id number] 07/28/2020 09:28:00 AM EDT [facility] Name Value Range Interpretation Code Description Data Mayda rce(s) Supporting Document(s) SARS-CoV-2 [facility] This lab was ordered by [facility] and reported by [employer]. ID Date Data Source [id number] 07/21/2020 10:44:00 AM EDT [facility] Name Value Range Interpretation Code Description Data Mayda rce(s) Supporting Document(s) SARS-CoV-2 [facility] This lab was ordered by [facility] and reported by [employer]. ID Date Data Source [id number] 07/14/2020 01:32:00 PM EDT [facility] Name Value Range Interpretation Code Description Data Mayda rce(s) Supporting Document(s) SARS-CoV-2 [facility] This lab was ordered by [facility] and reported by [employer]. ID Date Data Source [id number] 07/07/2020 01:27:00 PM EDT [facility] Name Value Range Interpretation Code Description Data Mayda rce(s) Supporting Document(s) SARS-CoV-2 [facility] This lab was ordered by [employer] [employer] and reported by [employer]. ID Date Data Source [id number] 06/30/2020 12:00:00 AM EDT [facility] Name Value Range Interpretation Code Description Data Mayda rce(s) Supporting Document(s) 2018-nCoV RNA XXX CAM+probe-Imp [facility] This lab was ordered by [employer] and repo rted by [email or web address]. ID Date Data Source [id number] 06/17/2020 12:00:00 AM EDT [facility] Name Value Range Interpretation Code Description Data Mayda rce(s) Supporting Document(s) 2018-nCoV RNA XXX CAM+probe-Imp [facility] This lab was ordered by [employer] and repo rted by [email or web address]. ID Date Data Source [id number] 06/02/2020 12:00:00 AM EDT [facility] Name Value Range Interpretation Code Description Data Mayda rce(s) Supporting Document(s) 2019-nCoV RNA XXX CAM+probe-Imp [facility] This lab was ordered by [employer] and repo rted by [email or web address]. ID Date Data Source [id number] 05/26/2020 12:00:00 AM EDT [facility] Name Value Range Interpretation Code Description Data Mayda rce(s) Supporting Document(s) 2018-nCoV RNA XXX CAM+probe-Imp [facility] This lab was ordered by [employer] and repo rted by [email or web address]. ID Date Data Source [id number] 05/19/2020 12:00:00 AM EDT [facility] Name Value Range Interpretation Code Description Data Mayda rce(s) Supporting Document(s) 2019-nCoV RNA XXX CAM+probe-Imp [facility] This lab was ordered by [employer] and repo rted by [email or web address]. ID Date Data Source [id number] 04/30/2020 12:00:00 AM EDT [facility] Name Value Range Interpretation Code Description Data Mayda rce(s) Supporting Document(s) 2018-nCoV RNA XXX CAM+probe-Imp [facility] This lab was ordered by [employer] and repo rted by [email or web address]. ID Date Data Source [id number] 04/21/2020 12:00:00 AM EDT [facility] Name Value Range Interpretation Code Description Data Mayda rce(s) Supporting Document(s) 2019-nCoV RNA XXX CAM+probe-Imp [facility] This lab was ordered by [employer] and repo rted by [email or web address]. ID Date Data Source [id number] 04/16/2020 12:00:00 AM EDT [facility] Name Value Range Interpretation Code Description Data Mayda rce(s) Supporting Document(s) 2018-nCoV RNA XXX CAM+probe-Imp [facility] This lab was ordered by [employer] and repo rted by [email or web address]. ID Date Data Source [id number] 04/12/2020 12:00:00 AM EDT [facility] Name Value Range Interpretation Code Description Data Mayda rce(s) Supporting Document(s) 2018-nCoV RNA XXX CAM+probe-Imp [facility] This lab was ordered by [employer] and repo rted by [email or web address]. ID Date Data Source [id number] 04/06/2020 12:00:00 AM EDT [facility] Name Value Range Interpretation Code Description Data Mayda rce(s) Supporting Document(s) 2019-nCoV RNA XXX CAM+probe-Imp [facility] This lab was ordered by [employer] and repo rted by [email or web address]. ID Date Data Source [id number] 03/26/2020 12:00:00 AM EDT [facility] Name Value Range Interpretation Code Description Data Mayda rce(s) Supporting Document(s) 2019-nCoV RNA XXX CAM+probe-Imp [facility] This lab was ordered by [employer] and repo rted by [email or web address]. Procedure Social History Code Duration Value Status Description Data Source(s ) Smoking 11/15/2020 12:00:00 AM EST Patient has never smoked co mpleted Patient has never smoked [facility] ([facility] Vital Signs ID Date Data Source UNK Name Value Range Interpretation Code Description Data Source(s) Body mass index (BMI) [Ratio] 37.5 kg/m2 37.5 k g/m2 [facility] ([facility] [place] body weight 110 [lb_av] 110 [lb_av] MEDEN [...] k g/m2 [facility] ([facility] [place] body weight 110 [lb_av] 110 [lb_av] MED[facility] T ([facility] Oxygen saturation in Arterial blood by Pulse oximetry 98 % 98 % [facility] ([facility] Body weight 201.50 [lb_av] 201.50 [...] k g/m2 [facility] ([facility] [place] body weight 110 [lb_av] 110 [lb_av] MEDEN [...] [Ratio] 32.9 kg/m2 32.9 k g/m2 [facility] ([facility], [facility]) Body height 62 [in_i] 62 [in_i] [facility], [facility]) 5'2" Body weight 180.00 [lb_av] 180.00 [lb_av] [facility] T ([facility], [facility]) Body temperature 98.2 [degF] 98.2 [degF] [facility] ([facility], [facility]) Oxygen saturation in Arterial blood by Pulse oximetry 99 % 99 % [facility] ([facility], [facility]) Respiratory rate 14 /min 14 /min [facility] ( [facility], [facility]) Heart rate 77 /min 77 /min [facility] ([facility], [facility]) Diastolic blood pressure 85 mm[Hg] 85 mm[Hg] [facility] ([facility], [facility]) Systolic blood pressure 130 mm[Hg] 130 mm[Hg] [facility] ([facility], [facility]) Body mass index (BMI) [Ratio] 33.8 kg/m2 33.8 k g/m2 [facility] ([facility], [facility]) Body height 62 [in_i] 62 [in_i] [facility], [facility]) 5'2" Body weight 185.00 [lb_av] 185.00 [lb_av] MEDEN T ([facility], [facility]) Body temperature 98.6 [degF] 98.6 [degF] [facility] ([facility]) Oxygen saturation in Arterial blood by Pulse oximetry 97 % 97 % [facility] ([facility], [facility]) Respiratory rate 12 /min 12 /min [facility] ( [facility], [facility]) Heart rate 89 /min 89 /min [facility] ([facility], [facility]) Diastolic blood pressure 74 mm[Hg] 74 mm[Hg] [facility] ([facility], [facility]) Systolic blood pressure 109 mm[Hg] 109 mm[Hg] [facility] ([facility], [facility]) Oxygen saturation in Arterial blood by Pulse oximetry 98 % 98 % [facility] ([facility] Body weight 191.25 [...] [Ratio] 34.6 kg/m2 34.6 k g/m2 [facility] ([facility]) Body height 62 [in_i] 62 [in_i] [facility] ([facility]) 5'2" Body weight 189.00 [lb_av] 189.00 [lb_av] MEDEN T ([facility], [facility]) Body temperature 98.3 [degF] 98.3 [degF] [facility] ([facility], [facility]) Oxygen saturation in Arterial blood by Pulse oximetry 99 % 99 % [facility] ([facility], [facility]) Respiratory rate 17 /min 17 /min [facility] ( [facility], [facility]) Heart rate 75 /min 75 /min [facility] ([facility] [place], [facility]) Diastolic blood pressure 78 mm[Hg] 78 mm[Hg] [facility] ([facility], [facility]) Systolic blood pressure 122 mm[Hg] 122 mm[Hg] [facility] ([facility], [facility])
== END 2020-11-16 01:56 | disposition left against medical advice (07) ==
LOC: M ED 01:24
DX: Z53.21 Procedure and treatment not carried out due to patient leaving prior to being seen by health care provider (principal)

== ENCOUNTER → 2020-11-30 | Outpatient (CLI) | payer SELFPAY | LOC: M LABSMTC 12:06 | PROVIDERS: ATTEND Pediatrics | DX: Z20.822 Contact with and (suspected) exposure to COVID-19 (principal) ==

== ENCOUNTER → 2020-12-29 | Outpatient (CLI) | payer SELFPAY | LOC: M LABSMTC 13:28 | PROVIDERS: ATTEND Pediatrics | DX: Z20.822 Contact with and (suspected) exposure to COVID-19 (principal) ==

== ENCOUNTER → 2021-01-07 | Outpatient (CLI) | payer SELFPAY | LOC: M LABSMTC 10:24 | PROVIDERS: ATTEND Pediatrics | DX: Z11.52 Encounter for screening for COVID-19 (principal) ==

== ENCOUNTER → 2021-01-18 | Outpatient (CLI) | payer BC ==
[2021-01-18 16:57] LABS: ALBUMIN 3.8 GM/DL (3.2-5.2); ALT/SGPT 18 U/L (12-78); BILIRUBIN,TOTAL 0.3 MG/DL (0.2-1.0); BLOOD UREA NITROGEN 19 MG/DL (7-18); CALCIUM LEVEL 9.5 MG/DL (8.5-10.1); CARBON DIOXIDE LEVEL 27 MEQ/L (21-32); CHLORIDE LEVEL 105 MEQ/L (98-107); CHOLESTEROL LEVEL 166 MG/DL (<200); CHOLESTEROL RISK RATIO 2.677 (<5); CREATININE FOR GFR 0.74 MG/DL (0.55-1.30); FREE T4 0.87 NG/DL (0.76-1.46); GLOMERULAR FILTRATION RATE > 60.0 (>60); GLUCOSE, FASTING 162 MG/DL (70-100); HDL CHOLESTEROL 62 MG/DL (>40); LDL CHOLESTEROL 86 MG/DL (<100); NON-HDL-C 104 MG/DL; SODIUM LEVEL 138 MEQ/L (136-145); THYROID STIMULATING HORMONE 0.394 uIU/ML (0.358-3.740); TRIGLYCERIDES LEVEL 89 MG/DL (<150)
== END ==
LOC: M WUC 14:19
PROVIDERS: ATTEND Nurse Practitioner Family
DX: R63.5 Abnormal weight gain (principal)

== ENCOUNTER 2021-07-01 04:48 | Emergency (ER) | payer BC ==
[~2021-07-01] VITALS: Ht 157.5 cm; Wt 90.9 kg
[2021-07-01 04:49] VITALS: BP 121/81
[2021-07-01] MEDS ORDERED: ALBU8.5H PO (05:00)
[2021-07-01] MEDS ORDERED: ACET-897 PO (05:00)
== END 2021-07-01 05:08 | disposition left against medical advice (07) ==
LOC: M ED 04:48
DX: Z53.21 Procedure and treatment not carried out due to patient leaving prior to being seen by health care provider (principal)

== ENCOUNTER → 2022-07-26 | Outpatient (REF) ==
[~2022-07-26] MED LIST changes: +ACET-897 PO; +ALBU8.5H PO
[2022-07-26 12:21] LABS: RSV AMPLIFICATION NEGATIVE (NEGATIVE)
== END ==
LOC: M EMP 11:09
PROVIDERS: ATTEND Family Medicine
DX: Z11.52 Encounter for screening for COVID-19 (principal)

== ENCOUNTER 2023-02-09 18:31 | Emergency (ER) | payer BC ==
[2023-02-09 18:42] VITALS: BP 145/80
[2023-02-09 19:09] LABS: BASO % 0.5 % (0.0-1.0); EOS % 0.3 % (0.0-3.0); HEMATOCRIT 45.8 % (36.0-47.0); HEMOGLOBIN 15.5 g/dl (12.0-15.5); LYMPH # 2.2 10^3/uL (1.5-5.0); LYMPH % 28.1 % (24.0-44.0); MEAN CORPUSCULAR HEMOGLOBIN 28.4 pg (27.0-33.0); MEAN CORPUSCULAR HGB CONC 33.8 g/dl (32.0-36.5); MONO # 0.7 10^3/uL (0.0-0.8); MONO % 8.6 % (2.0-8.0); NEUTROPHILS # 4.9 10^3/uL (1.5-8.5); NEUTROPHILS % 62.4 % (36.0-66.0); PLATELET COUNT, AUTOMATED 312 10^3/uL (150-450); RED BLOOD COUNT 5.45 10^6/uL (4.00-5.40); WHITE BLOOD COUNT 7.9 10^3/uL (4.0-10.0)
[2023-02-09 19:23] LABS: ETHYL ALCOHOL (ETHANOL) < 0.003 % (0.000-0.010); HCG, SERUM QUALITATIVE NEGATIVE (NEGATIVE)
[2023-02-09 19:25] LABS: ACETAMINOPHEN LEVEL < 2.0 UG/ML (10.0-20.0); ALBUMIN 4.3 G/DL (3.2-5.2); ALKALINE PHOSPHATASE 54 U/L (46-116); ALT/SGPT 11 U/L (7.0-40); AST/SGOT 18 U/L (<34); BILIRUBIN,DIRECT 0.6 MG/DL (<0.4); BILIRUBIN,TOTAL 1.6 MG/DL (0.3-1.2); BLOOD UREA NITROGEN 10 MG/DL (9-23); CARBON DIOXIDE LEVEL 27 MMOL/L (20-31); CHLORIDE LEVEL 102 MMOL/L (98-107); CREATININE FOR GFR 0.63 MG/DL (0.55-1.30); GLOMERULAR FILTRATION RATE > 60.0 (>60); GLUCOSE, FASTING 140 MG/DL (60-100); MAGNESIUM LEVEL 1.8 MG/DL (1.8-2.4); PHOSPHORUS LEVEL 2.8 MG/DL (2.5-4.9); POTASSIUM SERUM 3.2 MMOL/L (3.5-5.1); SALICYLATE LEVEL < 3.0 MG/DL (<30); SODIUM LEVEL 138 MMOL/L (136-145); TOTAL PROTEIN 7.4 G/DL (5.7-8.2)
[2023-02-09 19:26] LABS: FREE T4 1.65 NG/DL (0.89-1.76)
[2023-02-09 19:27] LABS: THYROID STIMULATING HORMONE 1.253 uIU/ML (0.55-4.78)
[2023-02-09 19:45] LABS: AMPHETAMINES LEVEL URINE NEGATIVE (NEGATIVE); BARBITURATES URINE NEGATIVE (NEGATIVE); BENZODIAZEPINES URINE NEGATIVE (NEGATIVE); COCAINE METABOLITE URINE NEGATIVE (NEGATIVE); METHADONE URINE NEGATIVE (NEGATIVE); OPIATES URINE NEGATIVE (NEGATIVE); PHENCYCLIDINE URINE NEGATIVE (NEGATIVE)
[2023-02-09] MEDS ORDERED: POTASSIUM CHLORIDE 10MEQ SR TABLET PO ONE (19:45)
[2023-02-09 19:48] LABS: CANNABINOIDS URINE POSITIVE (NEGATIVE)
== END 2023-02-09 22:08 | disposition home or self-care (01) ==
LOC: M ED 18:31
DX: R20.2 Paresthesia of skin (principal); R42 Dizziness and giddiness; R73.03 Prediabetes; Z88.6 Allergy status to analgesic agent; Z79.899 Other long term (current) drug therapy; Z79.51 Long term (current) use of inhaled steroids

== ENCOUNTER → 2023-09-25 | Outpatient (REF) | payer BC ==
[~2023-09-25] MED LIST changes: +DICY20TA20 PO; +PRED20TA PO
[2023-09-25 19:22] LABS: RSV AMPLIFICATION NEGATIVE (NEGATIVE)
== END ==
LOC: M LAB REF 18:21
PROVIDERS: ATTEND Physician Assistant
DX: J06.9 Acute upper respiratory infection, unspecified (principal)

== ENCOUNTER 2023-09-28 12:11 | Emergency (ER) | payer BC ==
[~2023-09-28] VITALS: Ht 157.5 cm; Wt 62.2 kg
[~2023-09-28 12:11] MED LIST changes: -DICY20TA20 PO; -PRED20TA PO
[2023-09-28 14:28] LABS: BASO % 0.3 % (0.0-1.0); EOS # 0.1 10^3/uL (0.0-0.5); EOS % 1.2 % (0.0-3.0); HEMATOCRIT 41.5 % (36.0-47.0); HEMOGLOBIN 13.6 g/dl (12.0-15.5); LYMPH # 0.9 10^3/uL (1.5-5.0); LYMPH % 14.8 % (24.0-44.0); MEAN CORPUSCULAR HEMOGLOBIN 29.1 pg (27.0-33.0); MEAN CORPUSCULAR HGB CONC 32.8 g/dl (32.0-36.5); MEAN CORPUSCULAR VOLUME 88.9 fl (80.0-96.0); MONO # 0.6 10^3/uL (0.0-0.8); MONO % 9.5 % (2.0-8.0); NEUTROPHILS # 4.3 10^3/uL (1.5-8.5); NEUTROPHILS % 73.9 % (36.0-66.0); PLATELET COUNT, AUTOMATED 241 10^3/uL (150-450); RED BLOOD COUNT 4.67 10^6/uL (4.00-5.40); WHITE BLOOD COUNT 5.9 10^3/uL (4.0-10.0)
[2023-09-28 14:41] LABS: LIPASE 19 U/L (12-53)
[2023-09-28 14:42] LABS: ALBUMIN 3.3 G/DL (3.2-5.2); ALKALINE PHOSPHATASE 51 U/L (46-116); ALT/SGPT < 9 U/L (7.0-40); AST/SGOT 14 U/L (<34); BILIRUBIN,DIRECT 0.2 MG/DL (<0.4); BILIRUBIN,TOTAL 0.5 MG/DL (0.3-1.2); BLOOD UREA NITROGEN 6 MG/DL (9-23); CARBON DIOXIDE LEVEL 30 MMOL/L (20-31); CHLORIDE LEVEL 107 MMOL/L (98-107); CREATININE FOR GFR 0.43 MG/DL (0.55-1.30); GLOMERULAR FILTRATION RATE > 60.0 (>60); GLUCOSE, FASTING 78 MG/DL (60-100); POTASSIUM SERUM 4.1 MMOL/L (3.5-5.1); SODIUM LEVEL 140 MMOL/L (136-145); TOTAL PROTEIN 6.6 G/DL (5.7-8.2)
[2023-09-28] MEDS ORDERED: ACETAMINOPHEN *IV* 1,000 MG in IV 1 EA IV ONE (14:45)
[2023-09-28] MEDS ORDERED: ISOVUE-370 76% 100ML VIAL As Ordered ONE (14:49)
[2023-09-28] MEDS ORDERED: PRED20TA PO (16:43)
[2023-09-28] MEDS ORDERED: DICY20TA20 PO (16:43)
[2023-09-28] MEDS ORDERED: DICYCLOMINE 10 MG CAP PO ONE (16:50)
[2023-09-28 16:56] VITALS: BP 129/61; TEMP 98.8; O2SAT 100
== END 2023-09-28 17:02 | disposition home or self-care (01) ==
LOC: M ED 12:11
DX: K52.9 Noninfective gastroenteritis and colitis, unspecified (principal); Z88.8 Allergy status to other drugs, medicaments and biological substances; Z79.899 Other long term (current) drug therapy; Z79.1 Long term (current) use of non-steroidal anti-inflammatories (NSAID); Z79.51 Long term (current) use of inhaled steroids
CPT/HCPCS: 74177; 80048; 80076; 81001; 83690; 84702; 85025; 96365; 99284; J0131; Q9967

== ENCOUNTER → 2023-10-02 | Outpatient (REF) | payer BC ==
[~2023-10-02] MED LIST changes: +DICY20TA20 PO; +PRED20TA PO
== END ==
LOC: M LAB REF 14:37
PROVIDERS: ATTEND Internal Medicine
DX: R19.7 Diarrhea, unspecified (principal)

== ENCOUNTER 2024-04-01 15:23 | Emergency (ER) | payer BC ==
[~2024-04-01] VITALS: Ht 157.5 cm; Wt 63.6 kg
[2024-04-01 17:59] VITALS: BP 121/71; TEMP 99.2; O2SAT 100
[2024-04-01] MEDS: ACETAMINOPHEN 500 MG TAB PO ONE (18:08)
[2024-04-02] MEDS ORDERED: ONDA4TAB6 PO (17:21)
== END 2024-04-01 18:12 | disposition home or self-care (01) ==
LOC: M ED 15:23
DX: S06.0X0A Concussion without loss of consciousness, initial encounter (principal); Y92.9 Unspecified place or not applicable; Y93.9 Activity, unspecified; Y99.9 Unspecified external cause status; F41.9 Anxiety disorder, unspecified; F32.A Depression, unspecified; Z88.8 Allergy status to other drugs, medicaments and biological substances; Z79.1 Long term (current) use of non-steroidal anti-inflammatories (NSAID); Z79.51 Long term (current) use of inhaled steroids; Z79.899 Other long term (current) drug therapy

== ENCOUNTER 2024-04-02 15:20 | Emergency (ER) | payer BC ==
[~2024-04-02] VITALS: Ht 157.5 cm; Wt 63.6 kg
[2024-04-02] MEDS: ONDANSETRON 4MG ORAL DISINTEGRATING TAB PO ONE (16:33)
[2024-04-02] MEDS: ACETAMINOPHEN 500 MG TAB PO ONE (16:33)
[2024-04-02] MEDS ORDERED: ONDA4TAB6 PO (17:21)
[2024-04-02 17:29] VITALS: BP 125/71; TEMP 99.4; O2SAT 100
== END 2024-04-02 17:41 | disposition home or self-care (01) ==
LOC: M ED 15:20
DX: F07.81 Postconcussional syndrome (principal); Z88.8 Allergy status to other drugs, medicaments and biological substances; Z79.1 Long term (current) use of non-steroidal anti-inflammatories (NSAID); Z79.51 Long term (current) use of inhaled steroids; Z79.899 Other long term (current) drug therapy

== ENCOUNTER 2024-08-03 19:08 | Emergency (ER) | payer BC ==
[~2024-08-03] VITALS: Ht 157.5 cm; Wt 72.1 kg
[2024-08-03 19:50] LABS: APPEARANCE, URINE HAZY (CLEAR); BACTERIA, URINE AUTO NEGATIVE (NEGATIVE); BILIRUBIN, URINE AUTO NEGATIVE (NEGATIVE); BLOOD, URINE BLOOD NEGATIVE (NEGATIVE); CALCIUM OXALATE CRYSTALS SMALL; COLOR, URINE YELLOW (YELLOW); GLUCOSE, URINE (UA) AUTO NEGATIVE (NEGATIVE); KETONE, URINE AUTO NEGATIVE (NEGATIVE); LEUKOCYTE ESTERASE, URINE AUTO NEGATIVE (NEGATIVE); MUCUS, URINE SMALL (NEGATIVE); NITRITE, URINE AUTO NEGATIVE (NEGATIVE); PROTEIN, URINE AUTO NEGATIVE (NEGATIVE); RBC, URINE AUTO 1 /HPF (0-3); SPECIFIC GRAVITY URINE AUTO 1.026 (1.002-1.035); SQUAMOUS EPITHELIAL CELL UR AU 3 /HPF (0-6); UROBILINOGEN, URINE AUTO 0.2 mg/dL (0.0-2.0); WBC, URINE AUTO 1 /HPF (0-3)
[2024-08-03 20:19] LABS: BASO % 0.4 % (0.0-1.0); EOS # 0.1 10^3/uL (0.0-0.5); EOS % 0.9 % (0.0-3.0); HEMATOCRIT 40.8 % (36.0-47.0); HEMOGLOBIN 13.7 g/dl (12.0-15.5); LYMPH # 1.8 10^3/uL (1.5-5.0); LYMPH % 23.8 % (24.0-44.0); MEAN CORPUSCULAR HEMOGLOBIN 30.4 pg (27.0-33.0); MEAN CORPUSCULAR HGB CONC 33.6 g/dl (32.0-36.5); MEAN CORPUSCULAR VOLUME 90.5 fl (80.0-96.0); MONO # 0.5 10^3/uL (0.0-0.8); MONO % 6.4 % (2.0-8.0); NEUTROPHILS # 5.2 10^3/uL (1.5-8.5); NEUTROPHILS % 68.4 % (36.0-66.0); PLATELET COUNT, AUTOMATED 283 10^3/uL (150-450); RED BLOOD COUNT 4.51 10^6/uL (4.00-5.40); WHITE BLOOD COUNT 7.6 10^3/uL (4.0-10.0)
[2024-08-03 20:38] LABS: LIPASE 27 U/L (12-53)
[2024-08-03 20:39] LABS: ALBUMIN 3.7 G/DL (3.2-5.2); ALKALINE PHOSPHATASE 60 U/L (46-116); ALT/SGPT < 9 U/L (7.0-40); AST/SGOT 11 U/L (<34); BILIRUBIN,DIRECT 0.2 MG/DL (<0.4); BILIRUBIN,TOTAL 0.8 MG/DL (0.3-1.2); TOTAL PROTEIN 6.9 G/DL (5.7-8.2)
[2024-08-03 20:41] LABS: HCG, SERUM QUALITATIVE NEGATIVE (NEGATIVE)
[2024-08-03 22:07] VITALS: BP 114/55; TEMP 98.3; O2SAT 100
== END 2024-08-03 22:08 | disposition home or self-care (01) ==
LOC: M ED 19:08
DX: E86.0 Dehydration (principal); R10.9 Unspecified abdominal pain; R11.2 Nausea with vomiting, unspecified; R19.7 Diarrhea, unspecified; Z88.8 Allergy status to other drugs, medicaments and biological substances; Z79.1 Long term (current) use of non-steroidal anti-inflammatories (NSAID); Z79.51 Long term (current) use of inhaled steroids; Z79.899 Other long term (current) drug therapy

== ENCOUNTER → 2024-08-03 | Outpatient (REF) | payer BC ==
[~2024-08-03] MED LIST changes: +ONDA-282 PO; -ONDA4TAB6 PO
[2024-08-04 16:58] LABS: FREE T4 1.24 NG/DL (0.89-1.76); THYROID STIMULATING HORMONE 0.52 uIU/ML (0.55-4.78)
[2024-08-04 17:00] LABS: FREE T3 3.2 PG/ML (2.3-4.2)
== END ==
LOC: M LAB REF 16:14
PROVIDERS: ATTEND Nurse Practitioner Adult Health
DX: R55 Syncope and collapse (principal); F41.1 Generalized anxiety disorder; R11.0 Nausea

== ENCOUNTER → 2024-08-05 | Outpatient (CLI) | payer BC ==
[~2024-08-05] MED LIST changes: +ISOVUE-370 76% 100ML VIAL As Ordered ONE
== END ==
LOC: M RAD 13:09
PROVIDERS: ATTEND Nurse Practitioner Adult Health
DX: R10.9 Unspecified abdominal pain (principal)

== ENCOUNTER → 2024-08-08 | Outpatient (REF) | payer BC ==
[~2024-08-08] MED LIST changes: -ISOVUE-370 76% 100ML VIAL As Ordered ONE
[2024-08-08 13:19] LABS: FOLLICLE STIMULATING HORMONE 4.8 mIU/ML
[2024-08-08 13:20] LABS: LUTEINIZING HORMONE 8.2 mIU/ML; PROLACTIN 28.72 NG/ML
== END ==
LOC: M LAB REF 12:11
PROVIDERS: ATTEND Internal Medicine
DX: N97.9 Female infertility, unspecified (principal); N92.6 Irregular menstruation, unspecified

== ENCOUNTER → 2024-10-13 | Outpatient (REF) | payer BC ==
[2024-10-13 13:36] LABS: HCG, SERUM QUALITATIVE NEGATIVE (NEGATIVE)
== END ==
LOC: M LAB REF 12:12
PROVIDERS: ATTEND Internal Medicine
DX: Z71.84 Encounter for health counseling related to travel (principal)

== ENCOUNTER → 2024-11-17 | Outpatient (REF) | payer BC | LOC: M LAB REF 16:22 | PROVIDERS: ATTEND Internal Medicine | DX: B52.9 Plasmodium malariae malaria without complication (principal) ==

== ENCOUNTER 2025-01-27 16:15 | Emergency (ER) | payer BC ==
[~2025-01-27] VITALS: Ht 157.5 cm; Wt 74.0 kg
[2025-01-27 16:18] VITALS: BP 119/69; TEMP 98; O2SAT 100
[2025-01-27] MEDS ORDERED: NAPR-885 (16:28)
== END 2025-01-27 16:46 | disposition left against medical advice (07) ==
LOC: M ED 16:15
DX: Z53.21 Procedure and treatment not carried out due to patient leaving prior to being seen by health care provider (principal)

== ENCOUNTER → 2025-03-02 | Outpatient (CLI) | payer BC ==
[~2025-03-02] MED LIST changes: +NAPR-885
== END ==
LOC: M WHC 11:28
PROVIDERS: ATTEND Internal Medicine
DX: R10.9 Unspecified abdominal pain (principal); N92.6 Irregular menstruation, unspecified

== ENCOUNTER → 2025-03-11 | Outpatient (REF) | payer BC | LOC: M LAB REF 14:34 → EEVIPCON 14:34 | PROVIDERS: ATTEND Nurse Practitioner Adult Health | DX: R10.9 Unspecified abdominal pain (principal); N83.10 Corpus luteum cyst of ovary, unspecified side; N30.90 Cystitis, unspecified without hematuria ==

== ENCOUNTER → 2025-05-11 | Outpatient (REF) | payer BC ==
[2025-05-13 15:29] LABS: HERPES ZOSTER, VARICELLA IgG < 1.00 S/CO (>=1.00); RUBEOLA IgG ANTIBODY 77.30 AU/mL (>16.49)
== END ==
LOC: M LAB REF 14:35
PROVIDERS: ATTEND Internal Medicine
DX: Z01.84 Encounter for antibody response examination (principal)

== ENCOUNTER → 2025-05-20 | Outpatient (REF) | payer BC ==
[2025-05-20 14:14] LABS: APPEARANCE, URINE HAZY (CLEAR); BACTERIA, URINE AUTO NEGATIVE (NEGATIVE); BILIRUBIN, URINE AUTO NEGATIVE (NEGATIVE); BLOOD, URINE BLOOD NEGATIVE (NEGATIVE); GLUCOSE, URINE (UA) AUTO NEGATIVE (NEGATIVE); KETONE, URINE AUTO NEGATIVE (NEGATIVE); LEUKOCYTE ESTERASE, URINE AUTO NEGATIVE (NEGATIVE); MUCUS, URINE SMALL (NEGATIVE); NITRITE, URINE AUTO NEGATIVE (NEGATIVE); PROTEIN, URINE AUTO NEGATIVE (NEGATIVE); RBC, URINE AUTO 3 /HPF (0-3); SPECIFIC GRAVITY URINE AUTO 1.020 (1.002-1.035); SQUAMOUS EPITHELIAL CELL UR AU 2 /HPF (0-6); URIC ACID CRYSTALS MODERATE; UROBILINOGEN, URINE AUTO 0.2 mg/dL (0.0-2.0); WBC, URINE AUTO 2 /HPF (0-3)
== END ==
LOC: M SMT 13:09
PROVIDERS: ATTEND Nurse Practitioner Family
DX: Z87.440 Personal history of urinary (tract) infections (principal)

== ENCOUNTER 2025-06-15 09:22 | Day surgery (SDC) | payer BC ==
[~2025-06-15] VITALS: Ht 157.5 cm; Wt 68.5 kg
[~2025-06-15 09:22] MED LIST changes: +IRON65TA2 PO; +MULTTAB20 PO; -NAPR-885; +ONDA-83 PO
[2025-06-15 10:06] LABS: PLATELET COUNT, AUTOMATED 263 10^3/uL (150-450)
[2025-06-15] MEDS ORDERED: LR 1,000 ML IV SCH ×2 (10:15→13:10)
[2025-06-15] MEDS ORDERED: LIDOCAINE 1% SDV 5 ML VIAL SC PRN (10:15)
[2025-06-15] MEDS ORDERED: SILVER NITRATE APPLICATOR (1 = QTY 10) As Ordered ONE (11:37)
[2025-06-15] MEDS ORDERED: ROCURONIUM BROMIDE 50MG/5ML VIAL As Ordered ONE (11:46)
[2025-06-15] MEDS ORDERED: MIDAZOLAM INJ 2 MG/2 ML VIAL As Ordered ONE (11:46)
[2025-06-15] MEDS ORDERED: ONDANSETRON 4MG 2ML VIAL As Ordered ONE (12:33)
[2025-06-15] MEDS ORDERED: dexAMETHasone 4 MG/ML 1 ML VIAL As Ordered ONE (12:33)
[2025-06-15] MEDS: METHYLENE BLUE 0.5% (5 MG/ML) 10 ML AMP As Ordered ONE (12:48)
[2025-06-15] MEDS: ONDANSETRON 4MG 2ML VIAL IV PRN (13:37)
[2025-06-15] MEDS: HYDROMORPHONE HCL 0.5 MG/0.5 ML SYRINGE IV PRN (13:48)
[2025-06-15] MEDS ORDERED: ENDO5TAB PO (14:26)
[2025-06-15] MEDS ORDERED: ONDA-282 PO (14:27)
[2025-06-15 15:00] VITALS: BP 118/78; TEMP 97.1; O2SAT 99
== END 2025-06-15 15:24 | disposition home or self-care (01) ==
LOC: M SDC 09:22
PROVIDERS: ATTEND Obstetrics & Gynecology
DX: N80.319 Endometriosis of the anterior cul-de-sac, unspecified depth (principal); N80.329 Endometriosis of the posterior cul-de-sac, unspecified depth; N97.9 Female infertility, unspecified; N73.6 Female pelvic peritoneal adhesions (postinfective); R10.2 Pelvic and perineal pain; G89.29 Other chronic pain; F17.290 Nicotine dependence, other tobacco product, uncomplicated; Z79.899 Other long term (current) drug therapy; Z88.6 Allergy status to analgesic agent
CPT/HCPCS: 36415; 58662; 81025; 85027; 86850; 86900; 86901; J0665; J1100; J1171; J2250; J2405; J3010; Q9968

== ENCOUNTER 2025-06-23 02:26 | Emergency (ER) | payer BC ==
[~2025-06-23] VITALS: Ht 157.5 cm; Wt 69.7 kg
[~2025-06-23 02:26] MED LIST changes: +ENDO5TAB PO
[2025-06-23 03:27] LABS: KETONE, URINE AUTO RFX TRACE mg/dL (NEGATIVE); LEUKOCYTE ESTERASE UR AUTO RFX NEGATIVE (NEGATIVE); MUCUS, URINE RFX SMALL (NEGATIVE); NITRITE, URINE AUTO RFX NEGATIVE (NEGATIVE); RBC, URINE AUTO RFX 3 /HPF (0-3); SQUAM EPITHELIAL CELL UR AURFX 1 /HPF (0-6); WBC, URINE AUTO RFX 1 /HPF (0-3)
[2025-06-23 03:28] LABS: BASO # 0.0 10^3/uL (0.0-0.2); BASO % 0.3 % (0.0-1.0); EOS # 0.1 10^3/uL (0.0-0.5); EOS % 1.0 % (0.0-3.0); LYMPH # 1.9 10^3/uL (1.5-5.0); LYMPH % 19.9 % (24.0-44.0); MONO # 0.8 10^3/uL (0.0-0.8); MONO % 8.5 % (2.0-8.0); NEUTROPHILS # 6.6 10^3/uL (1.5-8.5); NEUTROPHILS % 70.0 % (36.0-66.0); PLATELET COUNT, AUTOMATED 267 10^3/uL (150-450)
[2025-06-23 03:44] LABS: ALT/SGPT < 9 U/L (7.0-40); AST/SGOT 16 U/L (<34); CALCIUM LEVEL 9.9 MG/DL (8.5-10.1); CARBON DIOXIDE LEVEL 27 MMOL/L (20-31); CHLORIDE LEVEL 106 MMOL/L (98-107); CREATININE FOR GFR 0.59 MG/DL (0.55-1.30); GLOMERULAR FILTRATION RATE > 90.0 (>60); POTASSIUM SERUM 4.4 MMOL/L (3.5-5.1); SODIUM LEVEL 142 MMOL/L (136-145)
[2025-06-23 03:49] LABS: HCG, SERUM QUALITATIVE NEGATIVE (NEGATIVE)
[2025-06-23] MEDS ORDERED: ISOVUE-370 76% 100 ML VIAL As Ordered ONE (07:24)
[2025-06-23] MEDS: MORPHINE 4 MG/ML 1 ML VIAL IV PRN (07:34)
[2025-06-23] MEDS: NS (Normal Saline) 0.9% 1,000 ML IV ONE (08:03)
[2025-06-23 10:15] VITALS: BP 96/55
[2025-06-23 10:30] VITALS: TEMP 97.4; O2SAT 99
== END 2025-06-23 11:09 | disposition home or self-care (01) ==
LOC: M ED 02:26
DX: A04.72 Enterocolitis due to Clostridium difficile, not specified as recurrent (principal); A04.4 Other intestinal Escherichia coli infections; N83.11 Corpus luteum cyst of right ovary; K59.00 Constipation, unspecified; Z79.83 Long term (current) use of bisphosphonates; Z79.1 Long term (current) use of non-steroidal anti-inflammatories (NSAID); Z79.899 Other long term (current) drug therapy; Z88.6 Allergy status to analgesic agent
CPT/HCPCS: 74177; 80048; 80076; 81001; 83690; 84703; 85025; 87324; 87507; 96374; 96375; 99284; J2765; Q9967

== ENCOUNTER → 2025-07-13 | Outpatient (REF) | payer BC | LOC: M LAB REF 15:56 | PROVIDERS: ATTEND Internal Medicine | DX: R19.7 Diarrhea, unspecified (principal) ==

== ENCOUNTER 2025-10-09 19:30 | Emergency (ER) | payer BC ==
[~2025-10-09] VITALS: Ht 157.5 cm; Wt 65.4 kg
[2025-10-09 20:31] LABS: BASO # 0.0 10^3/uL (0.0-0.2); BASO % 0.4 % (0.0-1.0); EOS # 0.0 10^3/uL (0.0-0.5); EOS % 0.3 % (0.0-3.0); LYMPH # 2.0 10^3/uL (1.5-5.0); LYMPH % 27.6 % (24.0-44.0); MONO # 0.6 10^3/uL (0.0-0.8); MONO % 8.1 % (2.0-8.0); NEUTROPHILS # 4.6 10^3/uL (1.5-8.5); NEUTROPHILS % 63.3 % (36.0-66.0); PLATELET COUNT, AUTOMATED 243 10^3/uL (150-450)
[2025-10-09 20:59] LABS: KETONE, URINE AUTO RFX 2+ mg/dL (NEGATIVE); LEUKOCYTE ESTERASE UR AUTO RFX NEGATIVE (NEGATIVE); MUCUS, URINE RFX SMALL (NEGATIVE); NITRITE, URINE AUTO RFX NEGATIVE (NEGATIVE); RBC, URINE AUTO RFX 1 /HPF (0-3); SQUAM EPITHELIAL CELL UR AURFX 0 /HPF (0-6); WBC, URINE AUTO RFX 0 /HPF (0-3)
[2025-10-09 21:05] LABS: CALCIUM LEVEL 8.8 MG/DL (8.5-10.1); CARBON DIOXIDE LEVEL 28 MMOL/L (20-31); CHLORIDE LEVEL 103 MMOL/L (98-107); CREATININE FOR GFR 0.51 MG/DL (0.55-1.30); GLOMERULAR FILTRATION RATE > 90.0 (>60); POTASSIUM SERUM 3.9 MMOL/L (3.5-5.1); SODIUM LEVEL 140 MMOL/L (136-145)
[2025-10-10] MEDS: ACETAMINOPHEN *IV* 1,000 MG in IV 1 EA IV ONE (01:19)
[2025-10-10] MEDS: NS (Normal Saline) 0.9% 1,000 ML IV ONE (01:19)
[2025-10-10] MEDS: GASTROGRAFIN SOLUTION 30ML PO SCH (01:37)
[2025-10-10 02:32] LABS: ALT/SGPT < 9 U/L (7.0-40); AST/SGOT 17 U/L (<34)
[2025-10-10] MEDS ORDERED: ISOVUE-370 76% 100 ML VIAL As Ordered ONE (03:19)
[2025-10-10 05:00] VITALS: BP 117/61; TEMP 98.1; O2SAT 98
[2025-10-10] MEDS ORDERED: DULC10SU2 PR (05:04)
[2025-10-10] MEDS ORDERED: MIRA3350 PO (05:04)
== END 2025-10-10 05:26 | disposition home or self-care (01) ==
LOC: M ED 19:30
DX: K59.00 Constipation, unspecified (principal); K57.30 Diverticulosis of large intestine without perforation or abscess without bleeding; Z88.6 Allergy status to analgesic agent; Z79.899 Other long term (current) drug therapy; Z79.1 Long term (current) use of non-steroidal anti-inflammatories (NSAID)
CPT/HCPCS: 74177; 80048; 80076; 81001; 83690; 84443; 85025; 93005; 96365; 96366; 99284; J0134; Q9963; Q9967

== ENCOUNTER → 2025-11-02 | Outpatient (REF) | payer BC ==
[~2025-11-02] MED LIST changes: +DULC10SU2 PR; +MIRA3350 PO
== END ==
LOC: M LAB REF 18:40
PROVIDERS: ATTEND Physician Assistant
DX: J06.9 Acute upper respiratory infection, unspecified (principal)